=== PATIENT | female | born 1990 | race Caucasian/White ===

== ENCOUNTER 2019-06-14 16:01 | Emergency (ER) | payer OTHER ==
[~2019-06-14] VITALS: Ht 154.9 cm; Wt 80.3 kg
[2019-06-14] MEDS ORDERED: CYMBALTA20 MG PO (16:15)
[2019-06-14] MEDS ORDERED: FLONASE 0.05%50 MCG NARES (16:15)
[2019-06-14 16:53] VITALS: BP 120/80
== END 2019-06-14 16:53 | disposition left against medical advice (07) ==
LOC: M.ERS 16:01
DX: Z53.21 Procedure and treatment not carried out due to patient leaving prior to being seen by health care provider (principal)

== ENCOUNTER → 2020-04-19 | Outpatient (CLI) | payer OTHER ==
[~2020-04-19] MED LIST: CYMBALTA20 MG PO; FLONASE 0.05%50 MCG NARES
== END ==
LOC: M.LAB 09:32
PROVIDERS: ATTEND Internal Medicine Gastroenterology
DX: K21.9 Gastro-esophageal reflux disease without esophagitis (principal); Z20.828 Contact with and (suspected) exposure to other viral communicable diseases